=== PATIENT | female | born 1960 | race Caucasian/White ===

== ENCOUNTER → 2017-08-19 | Outpatient (CLI) | payer BC, OTHER | LOC: FIMAGING 11:09 | PROVIDERS: ATTEND Internal Medicine | DX: Z12.31 Encounter for screening mammogram for malignant neoplasm of breast (principal) ==

== ENCOUNTER 2017-10-22 15:07 | Emergency (ER) | payer OTHER ==
[2017-10-22 15:14] VITALS: TEMP 97.9
--- NOTE | 2017-10-22 15:28 | EDPHY ---
H & P Stated Complaint: took wrong insulin 22 units/decreasing bgl with eating Time Seen by Provider: 10/22/17 15:18 HPI/ROS: CHIEF COMPLAINT: Took wrong insulin HISTORY OF PRESENT ILLNESS: The patient is insulin-dependent diabetic. The patient awoke today at 8 o'clock in the morning. At 9 o'clock she accidentally took 22 units of Humalog instead of her 22 units of Lantus. She immediately recognized the mistake. She did not take her Lantus after consultation with her outside rigger. She reportedly has been struggling with some low blood sugars since that event. She reports her blood sugar has been as low as 70. After trying to manage her symptoms at home she became concerned and presents to the emergency department. Her last blood sugar was 140. The patient denies any additional complaints. She does have a history of hypertension for which she takes losartan. She denies any additional complaints. REVIEW OF SYSTEMS: A comprehensive 10 point review of systems is otherwise negative aside from elements mentioned in the history of present illness. Source: Patient Exam Limitations: No limitations - Personal History Current Tetanus Diphtheria and Acellular Pertussis (TDAP): Yes - Medical/Surgical History Hx Asthma: No Hx Chronic Respiratory Disease: No Hx Diabetes: Yes Hx Cardiac Disease: No Hx Renal Disease: No Hx Cirrhosis: No Hx Alcoholism: No Hx HIV/AIDS: No Hx Splenectomy or Spleen Trauma: No Other PMH: diabetic/htn - Social History Smoking Status: Former smoker - Physical Exam Exam: General Appearance: Alert, no distress Eyes: Pupils equal and round no pallor or injection ENT, Mouth: Mucous membranes moist Respiratory: There are no retractions, lungs are clear to auscultation Cardiovascular: Regular rate and rhythm Gastrointestinal: Abdomen is soft and nontender, no masses, bowel sounds normal Neurological: 5/5 strength all 4 extremities Skin: Warm and dry, no rashes Musculoskeletal: Neck is supple nontender Extremities: symmetrical, full range of motion Constitutional: Initial Vital Signs Temperature (C) 36.6 C 10/22/17 15:12 Heart Rate 94 10/22/17 15:12 Respiratory Rate 19 10/22/17 15:12 Blood Pressure 171/106 H 10/22/17 15:12 O2 Sat (%) 98 10/22/17 15:12 O2 Delivery Mode Room Air Allergies/Adverse Reactions: No Known Allergies Allergy (Verified 03/07/18 15:11) Home Medications: Medication Instructions Recorded Humalog 10/22/17 Lantus Solostar 10/22/17 Medical Decision Making ED Course/Re-evaluation: The patient was placed on a director cardiac and was brought into the resuscitation room. Patient's last fingerstick blood glucose was 140. An I- STAT was ordered at 3:30 p.m.. Her blood sugar is 137 in the emergency department. The patient's blood sugar was rechecked at 4:30pm and was 135. I re-evaluated the patient at 4:45 p.m. And she is in no acute distress. This point it appears her blood sugar has stabilized. She will be discharged home and advised to resume her regular dosage of insulin. - Data Points Laboratory Results: 10/22/17 10/22/17 10/22/17 16:35 16:03 15:28 POC Hgb 16.0 gm/dL gm/dL (12.6-16.3) POC Hct 47 % % (38-47) POC Sodium 140 mEq/L mEq/L (135-145) POC Potassium 4.5 mEq/L mEq/L (3.3-5.0) POC Chloride 98 mEq/L mEq/L (97-110) POC BUN 18 mg/dL mg/dL (7-23) POC Creatinine 0.8 mg/dL mg/dL (0.6-1.0) POC Glucose 134 mg/dL H mg/dL 126 mg/dL H mg/dL 137 mg/dL H mg/dL (70-100) (70-100) (70-100) Point of Care Test Results: 10/22/17 10/22/17 10/22/17 15:28 16:03 16:35 POC Sodium 140 POC Potassium 4.5 POC Chloride 98 POC BUN 18 POC Creatinine 0.8 POC Glucose 137 H 126 H 134 H Departure - Departure Disposition: Home, Routine, Self-Care Clinical Impression: Insulin reaction Condition: Good Instructions: Hypoglycemia in a Person with Diabetes (ED) Additional Instructions: 1. Return to the ED for any low blood sugars, weakness or other concerns. 2. You can resume your regular insulin dosage. 3. Follow up with your primary care provider as needed Referrals: Joe Jimenez MD [Primary Care Provider] - As per Instructions
[2017-10-22 17:02] VITALS: O2SAT 96
[2017-10-22 17:37] VITALS: BP 120/91; PULSE 88; RESP 16
== END 2017-10-22 17:38 | disposition home or self-care (01) ==
DX: T38.3X1A Poisoning by insulin and oral hypoglycemic [antidiabetic] drugs, accidental (unintentional), initial encounter (principal); E11.9 Type 2 diabetes mellitus without complications; I10 Essential (primary) hypertension; Z87.891 Personal history of nicotine dependence; Z79.4 Long term (current) use of insulin
CPT/HCPCS: 82947-QW

== ENCOUNTER → 2018-04-07 | Outpatient (CLI) | payer OTHER | LOC: FIMAGING 13:58 | PROVIDERS: ATTEND Internal Medicine | DX: M76.891 Other specified enthesopathies of right lower limb, excluding foot (principal) ==

== ENCOUNTER 2018-05-10 13:45 | Emergency (ER) | payer OTHER ==
--- NOTE | 2018-05-10 14:26 | EDPHY ---
H & P Stated Complaint: LUQ pain and nausea Time Seen by Provider: 05/10/18 14:13 HPI/ROS: CHIEF COMPLAINT: Left rib pain HISTORY OF PRESENT ILLNESS: Patient is a 57-year-old female who comes to the emergency department with her complaining of pain to her left anterior ribs just below her left breast. She states that she woke up in the middle of night with a "upset stomach". It resolved with time but is now turned into a chronic tightness in her left anterior rib area. She was worried about her pancreas and decided to come to the ER. She denies chest pain per se. She denies shortness of breath. No nausea vomiting or diarrhea. Some slight worsening with movement. No recent trauma. No fevers. No history of cardiac disease. She does have type 1 diabetes and has a history of fibroidectomy. No low back pain or CVA pain or dysuria. Severity: Moderate and constant Modifying factors: None REVIEW OF SYSTEMS: Constitutional: denies: chills, fever, recent illness, recent injury EENTM: denies: blurred vision, double vision, nose congestion Respiratory: denies: cough, shortness of breath Cardiac: See HPI denies: chest pain, irregular heart rate, lightheadedness, palpitations Gastrointestinal/Abdominal: See HPI Genitourinary: denies: dysuria, frequency, hematuria, pain Musculoskeletal: denies: joint pain, muscle pain Skin: denies: lesions, rash, jaundice, bruising Neurological: denies: headache, numbness, paresthesia, tingling, dizziness, weakness Hematologic/Lymphatic: denies: blood clots, easy bleeding, easy bruising Immunologic/allergic: denies: HIV/AIDS, transplant 10 systems reviewed and negative except as noted EXAM: GENERAL: Well-appearing, well-nourished and in no acute distress. HEAD: Atraumatic, normocephalic. EYES: Pupils equal round and reactive to light, extraocular movements intact, sclera anicteric, conjunctiva are normal. ENT: TMs normal, nares patent, oropharynx clear without exudates. Moist mucous membranes. NECK: Normal range of motion, supple without lymphadenopathy or JVD. LUNGS: Breath sounds clear to auscultation bilaterally and equal. No wheezes rales or rhonchi. HEART: Regular rate and rhythm without murmurs, rubs or gallops. ABDOMEN: Soft, nontender, normoactive bowel sounds. No guarding, no rebound. No masses appreciated. BACK: No CVA tenderness, no spinal tenderness, step-offs or deformities EXTREMITIES: Normal range of motion, no pitting or edema. No clubbing or cyanosis. NEUROLOGICAL: Cranial nerves II through XII grossly intact. Normal speech, normal gait. 5/5 strength, normal movement in all extremities, normal sensation , normal reflexes PSYCH: Normal mood, normal affect. SKIN: Warm, dry, normal turgor, no visible rashes or lesions. Source: Patient, Family Exam Limitations: No limitations - Personal History Current Tetanus/Diphtheria Vaccine: Unsure Current Tetanus Diphtheria and Acellular Pertussis (TDAP): Unsure - Medical/Surgical History Hx Asthma: No Hx Chronic Respiratory Disease: No Hx Diabetes: Yes Hx Cardiac Disease: No Hx Renal Disease: No Hx Cirrhosis: No Hx Alcoholism: No Hx HIV/AIDS: No Hx Splenectomy or Spleen Trauma: No Other PMH: diabetic/htn - Social History Smoking Status: Former smoker Alcohol Use: Sober Drug Use: None Constitutional: Initial Vital Signs Temperature (C) 36.6 C 05/10/18 13:46 Heart Rate 101 H 05/10/18 13:46 Respiratory Rate 16 05/10/18 13:46 Blood Pressure 168/109 H 05/10/18 13:46 O2 Sat (%) 97 05/10/18 13:46 O2 Delivery Mode Room Air Allergies/Adverse Reactions: No Known Allergies Allergy (Verified 10/22/17 15:11) Home Medications: Medication Instructions Recorded Humalog 10/22/17 Lantus Solostar 10/22/17 Medical Decision Making - Diagnostics EKG Interpretation: An EKG obtained and was read and documented in trace view. Please see trace view for full reading and report. Sinus rhythm, no acute ischemic changes A repeat EKG obtained and was read and documented in trace view. Please see trace view for full reading and report. Sinus rhythm, no changes from previous Imaging Results: Imaging Impressions Chest X-Ray 05/10/18 14:22 Impression: Clear lungs. No acute process to explain pain. Chest/Thorax CTA 05/10/18 15:43 Impression: 1. No evidence of pulmonary embolic disease. 2. See above report for additional findings. Results called and discussed with IMANI BARAJAS M.D. on 05/10/2018 at 16:23. Imaging: Discussed imaging studies w/ planning and analysis manager Radiologist ED Course/Re-evaluation: Patient has a normal exam. Her EKG is reassuring. We will obtain lab work and observe. Her symptoms have been present and constant for greater than 8 hr. 3:40 p.m. the patient states that her pain seems to be intensifying and possibly moving. Will obtain a repeat EKG. We discussed options. Lab work is all negative. She describes it as high about the level of her shoulder blade. Will obtain a CT angio of her chest. 4:30 p.m. We discussed the CT results. Patient is reassured. Is reassuring that her troponin is negative after several hours of symptoms. She is eager to go home and declines further workup or admission. We discussed indications for returning to the ER. Differential Diagnosis: Partial list of the Differential diagnosis considered include but were not limited to; peptic ulcer disease, rib pain, muscle strain, acute coronary disease, PE and although unlikely based on the history and physical exam, I also considered pneumothorax, pleurisy, fracture, radiculopathy. I discussed these differential diagnoses and the plan with the patient as well as the usual and expected course. The patient understands that the diagnosis is provisional and that in medicine we are not always correct and that further workup is often warranted. Usual and customary warnings were given. All of the patient's questions were answered. The patient was instructed to return to the emergency department should the symptoms at all worsen or return, otherwise to followup with the physician as we discussed. - Data Points Laboratory Results: Laboratory Results 05/10/18 14:19 05/10/18 14:19 05/10/18 05/10/18 05/10/18 14:30 14:19 14:19 WBC RBC Hgb Hct MCV MCH MCHC RDW Plt Count MPV Neut % (Auto) Lymph % (Auto) Hughes % (Auto) Eos % (Auto) Baso % (Auto) Nucleat RBC Rel Count Absolute Neuts (auto) Absolute Lymphs (auto) Absolute Monos (auto) Absolute Eos (auto) Absolute Basos (auto) Absolute Nucleated RBC Immature Gran % Immature Gran # PT 13.6 SEC SEC (12.0-15.0) INR 1.02 (0.83-1.16) APTT 26.5 SEC SEC (23.0-38.0) D-Dimer < 0.27 ug/mLFEU ug/mLFEU (0.00-0.50) Sodium Potassium Chloride Carbon Dioxide Anion Gap BUN Creatinine Estimated GFR Glucose Calcium Total Bilirubin Conjugated Bilirubin Unconjugated Bilirubin AST ALT Alkaline Phosphatase POC Troponin I 0.00 ng/mL ng/mL (0.00-0.08) Total Protein Albumin Lipase Beta HCG, Qual Urine Color COLORLESS Urine Appearance CLEAR Urine pH 6.0 (5.0-7.5) Ur Specific Heartwell 1.002 (1.002-1.030) Urine Protein NEGATIVE (NEGATIVE) Urine Ketones NEGATIVE (NEGATIVE) Urine Blood NEGATIVE (NEGATIVE) Urine Nitrate NEGATIVE (NEGATIVE) Urine Bilirubin NEGATIVE (NEGATIVE) Urine Urobilinogen NEGATIVE EU EU (0.2-1.0) Ur Leukocyte Esterase NEGATIVE (NEGATIVE) Urine RBC NONE SEEN /hpf /hpf (0-3) Urine WBC 0-1 /hpf /hpf (0-3) Ur Epithelial Cells TRACE /lpf /lpf (NONE-1+) Urine Mucus TRACE /lpf /lpf (NONE-1+) Urine Glucose NEGATIVE (NEGATIVE) 05/10/18 05/10/18 05/10/18 14:19 14:19 14:19 WBC 7.33 10^3/uL 10^3/uL (3.80-9.50) RBC 4.72 10^6/uL 10^6/uL (4.18-5.33) Hgb 14.8 g/dL g/dL (12.6-16.3) Hct 42.0 % % (38.0-47.0) MCV 89.0 fL fL (81.5-99.8) MCH 31.4 pg pg (27.9-34.1) MCHC 35.2 g/dL g/dL (32.4-36.7) RDW 12.3 % % (11.5-15.2) Plt Count 297 10^3/uL 10^3/uL (150-400) MPV 9.7 fL fL (8.7-11.7) Neut % (Auto) 51.2 % % (39.3-74.2) Lymph % (Auto) 33.3 % % (15.0-45.0) Hughes % (Auto) 8.9 % % (4.5-13.0) Eos % (Auto) 5.9 % % (0.6-7.6) Baso % (Auto) 0.4 % % (0.3-1.7) Nucleat RBC Rel Count 0.0 % % (0.0-0.2) Absolute Neuts (auto) 3.76 10^3/uL 10^3/uL (1.70-6.50) Absolute Lymphs (auto) 2.44 10^3/uL 10^3/uL (1.00-3.00) Absolute Monos (auto) 0.65 10^3/uL 10^3/uL (0.30-0.80) Absolute Eos (auto) 0.43 10^3/uL H 10^3/uL (0.03-0.40) Absolute Basos (auto) 0.03 10^3/uL 10^3/uL (0.02-0.10) Absolute Nucleated RBC 0.00 10^3/uL 10^3/uL (0-0.01) Immature Gran % 0.3 % % (0.0-1.1) Immature Gran # 0.02 10^3/uL 10^3/uL (0.00-0.10) PT INR APTT D-Dimer Sodium 137 mEq/L mEq/L (135-145) Potassium 4.1 mEq/L mEq/L (3.3-5.0) Chloride 102 mEq/L mEq/L (97-110) Carbon Dioxide 25 mEq/l mEq/l (22-31) Anion Gap 10 mEq/L mEq/L (8-16) BUN 13 mg/dL mg/dL (7-23) Creatinine 0.5 mg/dL L mg/dL (0.6-1.0) Estimated GFR > 60 Glucose 220 mg/dL H mg/dL (70-100) Calcium 10.3 mg/dL mg/dL (8.5-10.4) Total Bilirubin 0.7 mg/dL mg/dL (0.1-1.4) Conjugated Bilirubin 0.1 mg/dL mg/dL (0.0-0.5) Unconjugated Bilirubin 0.6 mg/dL mg/dL (0.0-1.1) AST 19 IU/L IU/L (14-46) ALT 32 IU/L IU/L (9-52) Alkaline Phosphatase 63 IU/L IU/L (38-126) POC Troponin I Total Protein 6.7 g/dL g/dL (6.3-8.2) Albumin 4.4 g/dL g/dL (3.5-5.0) Lipase 69 IU/L IU/L (23-300) Beta HCG, Qual NEGATIVE Urine Color Urine Appearance Urine pH Ur Specific Heartwell Urine Protein Urine Ketones Urine Blood Urine Nitrate Urine Bilirubin Urine Urobilinogen Ur Leukocyte Esterase Urine RBC Urine WBC Ur Epithelial Cells Urine Mucus Urine Glucose Medications Given: Discontinued Medications Sodium Chloride (Ns) 1,000 mls @ 0 mls/hr IV EDNOW ONE; Wide Open PRN Reason: Protocol Stop: 05/10/18 14:23 Last Admin: 05/10/18 14:32 Dose: 1,000 mls Ketorolac Tromethamine (Toradol) 15 mg IVP EDNOW ONE Stop: 05/10/18 16:12 Last Admin: 05/10/18 16:13 Dose: 15 mg Point of Care Test Results: Chemistry 05/10/18 14:30 POC Troponin I 0.00 ng/mL ng/mL (0.00-0.08) Departure - Departure Disposition: Home, Routine, Self-Care Clinical Impression: Rib pain on left side Condition: Fair Instructions: Thoracic Pain (ED) Referrals: Joe Jimenez MD [Primary Care Provider] - 2-3 days, call for appt.
--- NOTE | 2018-05-10 14:26 | CPEKG ---
Test Reason : OPEN Blood Pressure : / mmHG Vent. Rate : 092 BPM Atrial Rate : 091 BPM P-R Int : 123 ms QRS Dur : 076 ms QT Int : 364 ms P-R-T Axes : 042 064 058 degrees QTc Int : 451 ms Sinus rhythm Confirmed by Gunnar Thomas ([id number]), state editor Tino Masters ([id number]) on 05/10/2018 2:25:51 PM Referred By: Confirmed By:Gunnar Thomas
[2018-05-10 14:32] LABS: PLATELET COUNT 297 10^3/uL (150-400)
[2018-05-10] MEDS: NS 1,000 ML IV ONE (14:32)
[2018-05-10 14:39] LABS: INR 1.02 (0.83-1.16); PROTIME(PATIENT) 13.6 SEC (12.0-15.0)
[2018-05-10] MEDS ORDERED: IOPAMIDOL (ISOVUE 370) 100 ML BTL IV ONE (15:49)
--- NOTE | 2018-05-10 15:55 | CPEKG ---
Test Reason : OPEN Blood Pressure : / mmHG Vent. Rate : 086 BPM Atrial Rate : 085 BPM P-R Int : 119 ms QRS Dur : 080 ms QT Int : 378 ms P-R-T Axes : 039 069 056 degrees QTc Int : 452 ms Sinus rhythm Confirmed by Gunnar Thomas ([id number]), editor news Tino Masters ([id number]) on 05/10/2018 3:54:39 PM Referred By: Confirmed By:Gunnar Thomas
[2018-05-10] MEDS: KETOROLAC 15 MG/1 ML SDV IVP ONE (16:13)
[2018-05-10 16:37] VITALS: BP 166/107
--- NOTE | 2018-05-12 08:33 | CPEKG ---
Test Reason : OPEN Blood Pressure : / mmHG Vent. Rate : 092 BPM Atrial Rate : 091 BPM P-R Int : 123 ms QRS Dur : 076 ms QT Int : 364 ms P-R-T Axes : 042 064 058 degrees QTc Int : 451 ms Sinus rhythm Confirmed by Tino Masters ([id number]) on 05/12/2018 8:33:17 AM Referred By: Confirmed By:Tino Masters
== END 2018-05-10 16:37 | disposition home or self-care (01) ==
DX: R07.81 Pleurodynia (principal); I10 Essential (primary) hypertension; E11.9 Type 2 diabetes mellitus without complications; Z87.891 Personal history of nicotine dependence
CPT/HCPCS: 84484-PO; 96374; J1885; Q9967

== ENCOUNTER → 2018-05-28 | Outpatient (CLI) | payer OTHER | LOC: FIMAGING 06:57 | PROVIDERS: ATTEND Internal Medicine Gastroenterology | DX: R10.13 Epigastric pain (principal); K76.0 Fatty (change of) liver, not elsewhere classified ==

== ENCOUNTER → 2018-09-03 | Outpatient (CLI) | payer OTHER | LOC: FIMAGING 11:11 | PROVIDERS: ATTEND Internal Medicine | DX: Z12.31 Encounter for screening mammogram for malignant neoplasm of breast (principal) ==